=== PATIENT | female | born 1985 | race Caucasian/White ===

== ENCOUNTER → 2017-04-19 | Outpatient (REF) | payer OTHER | LOC: M SFHCLERA 11:38 | DX: R11.10 Vomiting, unspecified (principal) | CPT/HCPCS: 87086 ==

== ENCOUNTER → 2017-07-20 | Outpatient (CLI) | payer OTHER | LOC: M RAD 12:36 | DX: N63.11 Unspecified lump in the right breast, upper outer quadrant (principal) | CPT/HCPCS: 77066 ==

== ENCOUNTER → 2017-08-04 | Outpatient (CLI) | payer OTHER ==
[~2017-08-04] MED LIST: LIDOCAINE 1% MDV 20ML VIAL As Ordered
== END ==
LOC: M RADPRO 10:49
DX: D24.1 Benign neoplasm of right breast (principal)
CPT/HCPCS: 19083

== ENCOUNTER → 2019-08-11 | Outpatient (CLI) | payer OTHER ==
--- NOTE | 2019-08-11 15:48 | REP ---
MRI brain: 08/11/2019. Indication: Dizziness. Headache. Compression. Technique: Multiplanar short and long TR sequences of the brain were obtained without IV Gadolinium. Comparison: None. Findings: There are no areas of restricted diffusion. There is no intracranial mass effect, hydrocephalus or significant hemorrhage. The large intracranial flow voids are present. There are a few punctate nonspecific foci of elevated T2 signal within the white matter of the frontal lobes bilaterally. Impression: There is no evidence of an acute intracranial process. A few punctate nonspecific foci of abnormal white matter signal with considerations including sequelae of migraines, earlier than expected sequelae of chronic microangiopathic ischemic disease and much less likely etiologies including Lyme's disease. Electronically Signed by Gary Pritchard DO 08/11/2019 03:39 P
== END ==
LOC: M RAD 14:01
PROVIDERS: ATTEND Family Medicine
DX: S06.0X9A Concussion with loss of consciousness of unspecified duration, initial encounter (principal); R90.82 White matter disease, unspecified; X58.XXXA Exposure to other specified factors, initial encounter; Y92.9 Unspecified place or not applicable

== ENCOUNTER → 2019-08-24 | Outpatient (CLI) | payer OTHER ==
--- NOTE | 2019-08-24 22:12 | REP ---
MRI cervical spine: 08/24/2019. Indication: Cervical spine trauma. Technique: Multiplanar short and long TR sequences of the cervical spine were performed without IV Gadolinium. Comparison: None. Findings: Vertebral body alignment is within anatomic limits. No worrisome marrow or cord signal abnormalities are present. The craniocervical junction is unremarkable. The vertebral artery flow voids are unremarkable with left-sided is noted. There are no focal disc herniations or areas of significant spinal canal / neural foraminal narrowing. Impression: No focal disc herniation or significant spinal canal / neural foraminal narrowing. Electronically Signed by Gary Pritchard DO 08/24/2019 10:03 P
== END ==
LOC: M RAD 09:39
PROVIDERS: ATTEND Family Medicine
DX: S06.0X9A Concussion with loss of consciousness of unspecified duration, initial encounter (principal); Y92.9 Unspecified place or not applicable; Y93.9 Activity, unspecified; Y99.9 Unspecified external cause status

== ENCOUNTER 2020-03-12 14:41 | Emergency (ER) | payer OTHER ==
[~2020-03-12] VITALS: Ht 154.9 cm; Wt 47.7 kg
--- NOTE | 2020-03-12 15:56 | REP ---
INDICATION: trauma. COMPARISON: Comparison MRI study August 24, 2019.. TECHNIQUE: Helical scanning is acquired and overlapping 2 mm high resolution axial images were generated and reviewed at bone and soft tissue window settings. Coronal and sagittal multiplanar re-formations images are generated. FINDINGS: There is no evidence of cervical spine element fracture. No skull base fracture is seen. Cervical vertebral body heights are preserved. Alignment is normal. Facet joints are normally aligned bilaterally at each cervical level on multiplanar re-formations images. There is no evidence of intraspinal or paraspinal hematoma. No extra vertebral abnormality is seen. IMPRESSION: Negative CT study of the cervical spine without contrast. No fracture seen. <Electronically signed by Oleg Barnhart > 03/12/20 [id number]
[2020-03-12] MEDS ORDERED: IBUPROFEN 400MG TAB PO ONE (16:00)
[2020-03-12] MEDS ORDERED: CYCL5TAB PO (16:12)
[2020-03-12 16:35] VITALS: BP 118/68
== END 2020-03-12 16:35 | disposition home or self-care (01) ==
LOC: M ED 14:41
DX: S16.1XXA Strain of muscle, fascia and tendon at neck level, initial encounter (principal); V47.5XXA Car driver injured in collision with fixed or stationary object in traffic accident, initial encounter

== ENCOUNTER → 2020-11-06 | Outpatient (REF) | payer OTHER ==
[~2020-11-06] MED LIST changes: +CYCL5TAB PO; -LIDOCAINE 1% MDV 20ML VIAL As Ordered
[2020-11-06 14:01] LABS: APPEARANCE, URINE CLOUDY (CLEAR); BILIRUBIN, URINE AUTO NEGATIVE (NEGATIVE); BLOOD, URINE BLOOD 1+ (NEGATIVE); COLOR, URINE YELLOW (YELLOW); GLUCOSE, URINE (UA) AUTO NEGATIVE (NEGATIVE); KETONE, URINE AUTO NEGATIVE (NEGATIVE); LEUKOCYTE ESTERASE, URINE AUTO 2+ (NEGATIVE); NITRITE, URINE AUTO NEGATIVE (NEGATIVE); PROTEIN, URINE AUTO 2+ mg/dL (NEGATIVE); SPECIFIC GRAVITY URINE AUTO 1.017 (1.002-1.035); UROBILINOGEN, URINE AUTO 0.2 mg/dL (0.0-2.0)
[2020-11-06 14:05] LABS: BACTERIA, URINE AUTO NEGATIVE (NEGATIVE); RBC, URINE AUTO 20 /HPF (0-3); SQUAMOUS EPITHELIAL CELL UR AU 25 /HPF (0-6); WBC, URINE AUTO TNTC /HPF (0-3)
== END ==
LOC: M SFHCPLAZ 13:24
PROVIDERS: ATTEND Nurse Practitioner Family
DX: N39.0 Urinary tract infection, site not specified (principal)

== ENCOUNTER → 2021-01-16 | Outpatient (CLI) | payer OTHER | LOC: M PLALAB 16:01 | PROVIDERS: ATTEND Nurse Practitioner Family | DX: Z32.01 Encounter for pregnancy test, result positive (principal) ==

== ENCOUNTER → 2021-03-05 | Outpatient (CLI) | payer OTHER ==
[2021-03-05 17:42] LABS: BASO % 0.2 % (0.0-1.0); EOS # 0.1 10^3/uL (0.0-0.5); EOS % 0.4 % (0.0-3.0); LYMPH # 1.6 10^3/uL (1.5-5.0); MEAN CORPUSCULAR HEMOGLOBIN 30.6 pg (27.0-33.0); MEAN CORPUSCULAR HGB CONC 32.4 g/dl (32.0-36.5); MEAN CORPUSCULAR VOLUME 94.4 fl (80.0-96.0); MONO # 0.5 10^3/uL (0.0-0.8); MONO % 3.5 % (2.0-8.0); NEUTROPHILS # 11.1 10^3/uL (1.5-8.5); NEUTROPHILS % 83.3 % (36.0-66.0); PLATELET COUNT, AUTOMATED 361 10^3/uL (150-450); RED BLOOD COUNT 3.92 10^6/uL (4.00-5.40); WHITE BLOOD COUNT 13.4 10^3/uL (4.0-10.0)
[2021-03-05 19:00] LABS: HEPATITIS C VIRUS ABY INDEX < 0.0 INDEX (<0.8); HIV 1&2 SCREEN CENTAUR NEGATIVE (NEGATIVE)
[2021-03-05 19:23] LABS: GC DNA AMPLIFICATION NEGATIVE (NEGATIVE)
== END ==
LOC: M PLALAB 13:49
PROVIDERS: ATTEND Advanced Practice Midwife
DX: O09.529 Supervision of elderly multigravida, unspecified trimester (principal); Z3A.00 Weeks of gestation of pregnancy not specified

== ENCOUNTER → 2021-04-12 | Outpatient (CLI) | payer OTHER | LOC: M WHC 12:11 | PROVIDERS: ATTEND Advanced Practice Midwife | DX: Z34.92 Encounter for supervision of normal pregnancy, unspecified, second trimester (principal); Z3A.20 20 weeks gestation of pregnancy ==

== ENCOUNTER → 2021-05-10 | Outpatient (REF) | payer OTHER ==
[2021-05-10 17:35] LABS: APPEARANCE, URINE CLOUDY (CLEAR); BACTERIA, URINE AUTO 2+ (NEGATIVE); BILIRUBIN, URINE AUTO NEGATIVE (NEGATIVE); BLOOD, URINE BLOOD NEGATIVE (NEGATIVE); COLOR, URINE YELLOW (YELLOW); GLUCOSE, URINE (UA) AUTO NEGATIVE (NEGATIVE); KETONE, URINE AUTO TRACE mg/dL (NEGATIVE); LEUKOCYTE ESTERASE, URINE AUTO 1+ (NEGATIVE); MUCUS, URINE SMALL (NEGATIVE); NITRITE, URINE AUTO NEGATIVE (NEGATIVE); PROTEIN, URINE AUTO NEGATIVE (NEGATIVE); RBC, URINE AUTO 4 /HPF (0-3); SPECIFIC GRAVITY URINE AUTO 1.018 (1.002-1.035); SQUAMOUS EPITHELIAL CELL UR AU 11 /HPF (0-6); WBC, URINE AUTO 19 /HPF (0-3)
== END ==
LOC: M SFHCWAGY 17:02
PROVIDERS: ATTEND Obstetrics & Gynecology
DX: R30.0 Dysuria (principal)

== ENCOUNTER → 2021-05-10 | Outpatient (REF) | payer OTHER | LOC: M PLALAB 12:05 | PROVIDERS: ATTEND Obstetrics & Gynecology | DX: R30.0 Dysuria (principal); Z53.9 Procedure and treatment not carried out, unspecified reason ==

== ENCOUNTER → 2021-07-19 | Outpatient (CLI) | payer OTHER ==
[2021-07-19 18:22] LABS: HEMATOCRIT 30.4 % (36.0-47.0); HEMOGLOBIN 9.9 g/dl (12.0-15.5); MEAN CORPUSCULAR HEMOGLOBIN 30.3 pg (27.0-33.0); MEAN CORPUSCULAR HGB CONC 32.6 g/dl (32.0-36.5); PLATELET COUNT, AUTOMATED 385 10^3/uL (150-450); RED BLOOD COUNT 3.27 10^6/uL (4.00-5.40); WHITE BLOOD COUNT 13.3 10^3/uL (4.0-10.0)
[2021-07-19 18:29] LABS: APPEARANCE, URINE HAZY (CLEAR); BACTERIA, URINE AUTO 1+ (NEGATIVE); BILIRUBIN, URINE AUTO 1+ (NEGATIVE); BLOOD, URINE BLOOD NEGATIVE (NEGATIVE); CALCIUM OXALATE CRYSTALS MODERATE; COLOR, URINE AMBER (YELLOW); GLUCOSE, URINE (UA) AUTO NEGATIVE (NEGATIVE); KETONE, URINE AUTO TRACE mg/dL (NEGATIVE); LEUKOCYTE ESTERASE, URINE AUTO TRACE (NEGATIVE); MUCUS, URINE LARGE (NEGATIVE); NITRITE, URINE AUTO NEGATIVE (NEGATIVE); PROTEIN, URINE AUTO 1+ mg/dL (NEGATIVE); RBC, URINE AUTO 1 /HPF (0-3); SPECIFIC GRAVITY URINE AUTO 1.028 (1.002-1.035); SQUAMOUS EPITHELIAL CELL UR AU 3 /HPF (0-6); WBC, URINE AUTO 4 /HPF (0-3)
[2021-07-19 20:48] LABS: GC DNA AMPLIFICATION NEGATIVE (NEGATIVE)
== END ==
LOC: M PLALAB 15:24
PROVIDERS: ATTEND Obstetrics & Gynecology
DX: R30.0 Dysuria (principal); Z3A.24 24 weeks gestation of pregnancy
CPT/HCPCS: 36415; 81001; 85027; 86850; 86900; 86901; 87086; 87810; 87850; J2790

== ENCOUNTER → 2021-07-26 | Outpatient (REF) | payer OTHER | LOC: M SFHCWAGY 09:55 | PROVIDERS: ATTEND Obstetrics & Gynecology | DX: Z36.85 Encounter for antenatal screening for Streptococcus B (principal) ==

== ENCOUNTER → 2021-08-02 | Outpatient (REF) | payer OTHER | LOC: M PLALAB 16:15 | PROVIDERS: ATTEND Advanced Practice Midwife | DX: Z53.9 Procedure and treatment not carried out, unspecified reason (principal) ==

== ENCOUNTER → 2021-08-16 | Outpatient (CLI) | payer OTHER ==
[~2021-08-16] MED LIST changes: +PEPC1TAB5 PO
== END ==
LOC: M WHC 10:36
PROVIDERS: ATTEND Obstetrics & Gynecology
DX: O34.13 Maternal care for benign tumor of corpus uteri, third trimester (principal)

== ENCOUNTER → 2021-08-16 | Outpatient (CLI) | payer OTHER ==
[2021-08-16 15:35] LABS: HEMOGLOBIN A1c 5.6 %
== END ==
LOC: M PLALAB 12:04
PROVIDERS: ATTEND Advanced Practice Midwife
DX: O09.523 Supervision of elderly multigravida, third trimester (principal)

== ENCOUNTER 2021-08-20 09:36 | Inpatient (IN) | payer OTHER ==
[2021-08-20] VITALS (8 sets, daily range): BP systolic 101–136; BP diastolic 55–77
[~2021-08-20] VITALS: Ht 154.9 cm; Wt 62.3 kg
[2021-08-20] MEDS: PRENATAL VITAMINS CHEWABLE TABLET PO SCH (09:00)
[~2021-08-20 09:36] MED LIST changes: -PEPC1TAB5 PO
[2021-08-20] MEDS ORDERED: PEPC1TAB5 PO (10:07)
[2021-08-20] MEDS ORDERED: HOME MED LIST COMPLETE! XX SCH (10:10)
[2021-08-20] MEDS ORDERED: LIDOCAINE 1% MDV 20ML VIAL INFIL PRN (11:00)
[2021-08-20] MEDS ORDERED: CARBOPROST TROMETHAMINE 250 MCG/ML AMP IM PRN (11:00)
[2021-08-20] MEDS ORDERED: METHYLERGONOVINE MALEATE 0.2 MG/ML VIAL (J2210) IM PRN (11:00)
[2021-08-20] MEDS ORDERED: TRANEXAMIC ACID INJection 1,000 MG in NS 100 ML IV PRN (11:00)
[2021-08-20 11:06] LABS: HEMATOCRIT 31.9 % (36.0-47.0); HEMOGLOBIN 10.7 g/dl (12.0-15.5); MEAN CORPUSCULAR HEMOGLOBIN 29.9 pg (27.0-33.0); MEAN CORPUSCULAR HGB CONC 33.5 g/dl (32.0-36.5); MEAN CORPUSCULAR VOLUME 89.1 fl (80.0-96.0); PLATELET COUNT, AUTOMATED 300 10^3/uL (150-450); RED BLOOD COUNT 3.58 10^6/uL (4.00-5.40); WHITE BLOOD COUNT 15.5 10^3/uL (4.0-10.0)
[2021-08-20] MEDS ORDERED: OXYTOCIN 30 UNITS IN 0.9% NaCl 500ML IV BAG (J2590) As Ordered ONE (11:56)
[2021-08-20] MEDS ORDERED: OXYTOCIN DRIP 30 UNITS in IV 1 EA IV SCH ×2 (13:35→14:55)
[2021-08-20] MEDS: LR 1,000 ML IV SCH ×2 (13:35→21:35)
[2021-08-20] MEDS ORDERED: METHYLERGONOVINE MALEATE 0.2 MG TAB PO PRN (14:55)
[2021-08-20] MEDS ORDERED: IBUPROFEN 600MG TAB PO PRN (14:55)
[2021-08-20] MEDS ORDERED: ANUSOL HC CREAM 30GM TOP PRN (14:55)
[2021-08-20] MEDS ORDERED: MOM 30ML SUSPENSION UDC PO PRN (14:55)
[2021-08-20] MEDS ORDERED: DIBUCAINE 1% OINTMENT 30GM TOP PRN (14:55)
[2021-08-20] MEDS ORDERED: ACETAMINOPHEN TAB 650MG DOSE (2X325MG) PO PRN (14:55)
[2021-08-20] MEDS ORDERED: DOCUSATE SODIUM 100MG CAPSULE PO PRN (14:55)
[2021-08-20] MEDS ORDERED: RHOGAM 300 MCG (1500 IU) INJ (J2790) IM SCH (14:55)
[2021-08-20] MEDS: IBUPROFEN 800 MG TAB PO PRN (16:10)
[2021-08-21] MEDS: ACETAMINOPHEN 500 MG TAB PO PRN ×3 (03:39→20:42)
[2021-08-21] MEDS: IBUPROFEN 800 MG TAB PO PRN ×2 (05:15→13:35)
[2021-08-21 06:00] VITALS: BP 103/65
[2021-08-21] MEDS: PRENATAL VITAMINS CHEWABLE TABLET PO SCH (07:49)
[2021-08-21 18:00] VITALS: BP 115/80
[2021-08-22 06:06] VITALS: BP 118/66
[2021-08-22] MEDS: PRENATAL VITAMINS CHEWABLE TABLET PO SCH (08:07)
[2021-08-22] MEDS: IBUPROFEN 800 MG TAB PO PRN (08:07)
[2021-08-22] MEDS ORDERED: MEASLES,MUMPS,RUBELLA VACCINE INJ (MMR-II) (90707) SC.IMMUN ONE (09:00)
== END 2021-08-22 14:53 | disposition home or self-care (01) | DRG 560 ==
LOC: M LDO 09:36 → M LDI 10:24 → M OBS 20:30
PROVIDERS: ADMIT Obstetrics & Gynecology; ATTEND Obstetrics & Gynecology
PROC: 10E0XZZ Delivery of Products of Conception, External Approach (ICD-10-PCS; principal; 2021-08-20)
DX: O34.13 Maternal care for benign tumor of corpus uteri, third trimester (principal); D25.9 Leiomyoma of uterus, unspecified; Z37.0 Single live birth; Z3A.39 39 weeks gestation of pregnancy; O09.523 Supervision of elderly multigravida, third trimester

== ENCOUNTER → 2023-02-17 | Outpatient (REF) | payer OTHER ==
[~2023-02-17] MED LIST changes: +PEPC1TAB5 PO
== END ==
LOC: M LAB REF 21:51
PROVIDERS: ATTEND Physician Assistant
DX: B34.9 Viral infection, unspecified (principal)